=== PATIENT | male | born 1940 | race Caucasian/White ===

== ENCOUNTER 2024-02-06 14:56 | Emergency (ER) | payer OTHER ==
[2024-02-06 16:11] LABS: SARS-CoV-2 Antigen CONTROL BLUE LINE VIS/BG OK
[2024-02-06 16:12] LABS: SARS-CoV-2 Antigen Rapid Res Negative (Negative)
--- NOTE | 2024-02-06 16:38 | RAD REPORT ---
EXAM DESCRIPTION: Pa Single View02/06/2024 3:33 pm CLINICAL HISTORY: COUGH COMPARISON: No comparisons TECHNIQUE: Portable AP view of the chest. FINDINGS: Right chest wall Port-A-Cath in place. The lungs are clear. No pneumothorax or effusion. The cardiomediastinal contours are unremarkable. IMPRESSION: No acute cardiopulmonary process.
--- NOTE | 2024-02-06 16:40 | ER ---
Nurse's Notes [facility] Name: Mario Bosch Age: 83 yrs Sex: Male : 1940 Arrival Date: 02/06/2024 Time: 14:56 Bed 16 Private MD: Diagnosis: Person with feared health complaint in whom no diagnosis is made Presentation: 02/05 15:01 Chief complaint: EMS states: called to [facility] for patient with low ko1 blood pressure and low O2, When they arrived patient was 100% on NC 2l , blood pressure was 134/78. Coronavirus screen: At this time, the client does not indicate any symptoms associated with coronavirus-19. Ebola Screen: No symptoms or risks identified at this time. Initial Sepsis Screen: Does the patient meet any 2 criteria? No. Patient's initial sepsis screen is negative. Does the patient have a suspected source of infection? No. Patient's initial sepsis screen is negative. Risk Assessment: Do you want to hurt yourself or someone else? Patient reports no desire to harm self or others. Onset of symptoms was February 06, 2024. 15:01 Method Of Arrival: EMS: [facility] ko1 15:01 Acuity: NEGAR 3 ko1 Triage Assessment: 15:04 General: Appears in no apparent distress. Behavior is calm, cooperative, appropriate ko1 for age. Pain: Denies pain. EENT: No deficits noted. Neuro: Reports weakness in right side. Cardiovascular: Rhythm is atrial fibrillation. Respiratory: Reports cough that is non-productive. GI: No deficits noted. : No deficits noted. Derm: No deficits noted. Musculoskeletal: No deficits noted. Historical: - Allergies: 15:05 PENICILLINS; sb4 - Home Meds: 15:04 Unable to obtain [Active]; ko1 - PMHx: 15:04 Anemia; Cerebrovascular accident; Coronary atherosclerosis; Atrial fibrillation; ko1 Hypertensive disorder; Hypothyroidism; Dementia; Congestive heart failure; - PSHx: 15:04 Unable to Obtain; ko1 - Immunization history:: Adult Immunizations unknown. - Infectious Disease History:: Denies. - Social history:: Smoking status: unknown. Screenin:30 [facility] ED Fall Risk Assessment (Adult) History of falling in the last 3 months, ko1 including since admission Yes- single mechanical fall (1 pt) Confusion or Disorientation No (0 pts) Intoxicated or Sedated No (0 pts) Impaired Gait Yes (1 pt) Mobility Assist Device Used Yes (1 pt) Altered Elimination Yes (1 pt) Score/Fall Risk Level 3 or more points = High Risk Oriented to surroundings, Maintained a safe environment, Educated pt \T\ family on fall prevention, incl call for assistance when getting out of bed, Assessed \T\ reinforced patient's understanding of fall precautions, Provided non-skid footwear, Hourly rounding (assess needs \T\ fall precautionary measures) done, Used ambulatory aids as needed (educated on \T\ assisted with), Used gait belt as appropriate Implemented a Fall Risk Plan of Care, Apply high fall risk patient identification: yellow non skid footwear/ fall signage, Remained w/in arm's length of patient and in sight while toileting, Offered frequent toileting (1:1 observation), Remained with patient while ambulating, Utilized family, sitter, or virtual radio broadcaster as indicated. Abuse screen: Denies threats or abuse. Denies injuries from another. Nutritional screening: No deficits noted. Tuberculosis screening: No symptoms or risk factors identified. Assessment: 15:05 Reassessment: see triage note. ko1 Vital Signs: 15:01 BP 120 / 52; Pulse 78; Resp 16; Temp 98; Pulse Ox 96% on R/A; ko1 16:06 BP 121 / 57; Pulse 65; Resp 16; Pulse Ox 96% ; dd2 16:30 BP 134 / 62; Pulse 70; Resp 14; Pulse Ox 96% on R/A; ko1 17:12 BP 124 / 62; Pulse 65; Resp 16; Pulse Ox 97% on R/A; ko1 ED Course: 14:58 Patient arrived in ED. sb4 14:59 Marian Comer PA-C is PHCP. sb4 14:59 Wolf George MD is Attending Physician. sb4 15:04 Triage completed. ko1 15:04 Arm band placed on right wrist. Patient placed in an exam room, on a stretcher, on ko1 gambling monitor, on pulse oximetry, Patient notified of wait time. 15:30 Patient has correct armband on for positive identification. Allergy band placed. Bed in ko1 low position. Call light in reach. Side rails up X2. Provided Education on: call light. Client placed on continuous cardiac and pulse oximetry monitoring. NIBP monitoring applied. campus monitor on. Door closed. Noise minimized. Lights dimmed. Warm blanket given. Pillow given. 15:30 No provider procedures requiring assistance completed. Patient did not have IV access ko1 during this emergency room visit. 15:34 Chest Single View In Process Unspecified. EDMS 15:36 Flu Sent. dd2 15:36 SARS RAPID Sent. dd2 16:05 PRISCA CID, RN is Primary Nurse. dd2 17:16 Awaiting transportation. ko1 17:16 Report given to Coco at [facility]. ko1 Administered Medications: No medications were administered Medication: 16:30 VIS not applicable for this client. ko1 Outcome: 16:40 Discharge ordered by . sb4 17:59 Discharged to [facility]. Report called to Coco ko1 17:59 Condition: stable 17:59 Instructed on discharge instructions, follow up and referral plans. 17:59 Patient left the ED. ko1 Signatures: Dispatcher [employer] EDMS Elina Goldstein, RN RN ko1 Marian Comer, PA-C PA-C sb4 PRISCA CID, RN RN dd2 Corrections: (The following items were deleted from the chart) 15:13 15:04 Allergies: PENICILLINS; ko1 sb4
--- NOTE | 2024-02-06 16:40 | EDPHYS ---
Physician Documentation [facility] Name: Mario Bosch Age: 83 yrs Sex: Male : 1940 Arrival Date: 02/06/2024 Time: 14:56 Bed 16 Private MD: ED Physician Wolf George HPI: 02/05 15:04 This 83 yrs old Unknown Male presents to ER via EMS with complaints of Blood Pressure sb4 Problem. 15:05 rehab called EMS for patient having low O2 saturation and low blood pressure, although sb4 did not say what the readings were. EMS arrived and recorded normal vital signs. patient has no complaints at this time. he does endorse a mild cough but denies any chest pain or shortness of breath. Historical: - Allergies: 15:05 PENICILLINS; sb4 - Home Meds: 15:04 Unable to obtain [Active]; ko1 - PMHx: 15:04 Anemia; Cerebrovascular accident; Coronary atherosclerosis; Atrial fibrillation; ko1 Hypertensive disorder; Hypothyroidism; Dementia; Congestive heart failure; - PSHx: 15:04 Unable to Obtain; ko1 - Immunization history:: Adult Immunizations unknown. - Infectious Disease History:: Denies. - Social history:: Smoking status: unknown. ROS: 15:05 Constitutional: Negative for fever, chills, and weight loss, sb4 15:05 Respiratory: Positive for cough, with no reported sputum, Exam: 15:12 Constitutional: This is a well developed, well nourished patient who is awake, alert, sb4 and in no acute distress. Head/Face: Normocephalic, atraumatic. Eyes: Extra-ocular motions intact. Periorbital areas with no swelling, redness, or edema. ENT: Mucous membranes moist. Cardiovascular: Regular rate and rhythm with a normal S1 and S2. Respiratory: Lungs have equal breath sounds bilaterally, clear to auscultation and percussion. No rales, rhonchi or wheezes noted. No increased work of breathing, no retractions or nasal flaring. Abdomen/GI: Soft, non-tender, no distension. Skin: Warm, dry with normal turgor. Normal color with no rashes, no lesions, and no evidence of cellulitis. MS/ Extremity: Pulses equal, no cyanosis. Neurovascular intact. Full, normal range of motion. Vital Signs: 15:01 BP 120 / 52; Pulse 78; Resp 16; Temp 98; Pulse Ox 96% on R/A; ko1 16:06 BP 121 / 57; Pulse 65; Resp 16; Pulse Ox 96% ; dd2 16:30 BP 134 / 62; Pulse 70; Resp 14; Pulse Ox 96% on R/A; ko1 17:12 BP 124 / 62; Pulse 65; Resp 16; Pulse Ox 97% on R/A; ko1 MDM: 14:59 Patient medically screened. sb4 16:39 Data reviewed: vital signs, nurses notes, lab test result(s), radiologic studies, and sb4 as a result, I will discharge patient. Counseling: I had a detailed discussion with the patient and/or guardian regarding the historical points, exam findings, and any diagnostic results supporting the discharge/admit diagnosis, lab results, radiology results, to return to the emergency department if symptoms worsen or persist or if there are any questions or concerns that arise at home. 02/05 15:03 Order name: SARS RAPID; Complete Time: 16:19 sb4 02/05 15:03 Order name: Flu; Complete Time: 16:19 sb4 02/05 15:34 Order name: Chest Single View; Complete Time: 16:39 EDMS Administered Medications: No medications were administered Disposition: 18:09 Co-signature as Attending Physician, Wolf George MD I reviewed the patient's care rn provided by the Advanced Practice Provider and agree with the diagnosis and treatment plan. Disposition Summary: 02/06/24 16:40 Discharge Ordered Notes: Location: Home sb4 Problem: new sb4 Symptoms: are unchanged sb4 Condition: Stable sb4 Diagnosis - Person with feared health complaint in whom no diagnosis is made sb4 Followup: sb4 - With: Emergency Department - When: As needed - Reason: Trouble breathing, Worsening of condition Discharge Instructions: - Discharge Summary Sheet sb4 - Cough, Adult, [id number] sb4 Forms: - SBAR form bd - Patient Portal Instructions sb4 - Leadership Thank You Letter sb4 Signatures: Dispatcher [employer] EDMS Wolf George MD MD rn Oliver, Kathy, RN RN Marian Gardiner PA-C PA-C sb4 Corrections: (The following items were deleted from the chart) 15:03 15:03 SARS-COV-2 Antigen Rapid+I.LAB.BRZ ordered. EDMS EDMS 15:03 15:03 Influenza Screen (A \T\ B)+BA.LAB.BRZ ordered. EDMS EDMS 15:13 15:04 Allergies: PENICILLINS; ko1 sb4 15:34 15:03 Chest Pa And Lat (2 Views)+RAD.RAD.BRZ ordered. EDMS EDMS
[2024-02-06 18:55] VITALS: TEMP 98
[2024-02-06 19:00] VITALS: BP 124/62; O2SAT 97
== END 2024-02-06 17:59 | disposition home or self-care (01) ==
LOC: ER 14:56
DX: Z71.1 Person with feared health complaint in whom no diagnosis is made (principal); R05.9 Cough, unspecified; Z11.52 Encounter for screening for COVID-19
CPT/HCPCS: 36415; 71045; 87804; 87811

== ENCOUNTER 2024-04-27 19:08 | Emergency (ER) | payer OTHER ==
[2024-04-27 20:11] LABS: Absolute Eosinophils 0.1 K/uL (0-0.5); Absolute Lymphocytes (CBC) 1.6 K/uL (0.7-4.9); Absolute Monocytes 0.9 K/uL (0.1-1.3); Absolute Neutrophil 3.8 K/uL (1.8-8.0); Basophils % 0.6 % (0-1.3); Hematocrit 41.9 % (39.6-49.0); Hemoglobin 13.7 g/dL (13.6-17.9); Lymphocytes % 24.3 % (15.3-44.8); MCH 32.2 pg (27.0-35.0); MCHC 32.7 g/dL (32.0-36.0); MCV 98.3 fL (80-100); Monocytes % 14.4 % (3.3-12.3); Neutrophils % 58.7 % (41.7-73.7); Nucleated Red Blood Cells % 0.1 % (0-0); Platelets 171 thou/uL (152-406); RBC Red Blood Cell Count 4.26 M/uL (4.33-5.43)
[2024-04-27 20:24] LABS: Anion Gap 7.1 mEq/L (5.0-15.0); Troponin High Sensitivity 11.8 pg/mL (<58.9)
--- NOTE | 2024-04-27 20:24 | RAD REPORT ---
EXAMINATION: ONE VIEW CHEST XR CLINICAL INDICATION: Male, 83 years old.CHEST PAIN TECHNIQUE: 1 View, AP supine, X-ray of the chest was performed. [id number]. COMPARISON: 02/06/2024 FINDINGS: Lungs and pleura: Clear lungs. No effusion. Heart and mediastinum: Normal heart size. Unremarkable mediastinal contours. Osseous structures: No acute abnormality. Tubes/lines: Right IJ approach Port-A-Cath with tip overlying the distal SVC. Other: None. IMPRESSION: No acute intrathoracic abnormality.
[2024-04-27 20:25] LABS: Potassium 4.1 mEq/L (3.5-5.1)
--- NOTE | 2024-04-27 20:32 | ER ---
Nurse's Notes [facility] Name: Mario Bosch Age: 83 yrs Sex: Male : 1940 Arrival Date: 04/27/2024 Time: 19:08 Bed 2 Private MD: Diagnosis: Shortness of breath;Fluid Retention Presentation: 04/27 19:08 Chief complaint: EMS states: WERE CALLED OUT TO [facility] BY STAFF BECAUSE THEY jj7 STATES PT WAS HAVING SOB AND CP. PT STATES HE WAS HAVING SOB/CP EARLIER BUT SYMPTOMS HAVE RESOLVED. NO PAIN OR DISTRESS AT THIS TIME. Coronavirus screen: At this time, the client does not indicate any symptoms associated with coronavirus-19. Ebola Screen: No symptoms or risks identified at this time. Initial Sepsis Screen: Does the patient meet any 2 criteria? No. Patient's initial sepsis screen is negative. Does the patient have a suspected source of infection? No. Patient's initial sepsis screen is negative. Risk Assessment: Do you want to hurt yourself or someone else? Patient reports no desire to harm self or others. Onset of symptoms was April 27, 2024. Transition of care: patient was received from another setting of care (long-term care facility), [facility]. 19:08 Method Of Arrival: EMS: [facility] jj7 19:08 Acuity: NEGAR 3 jj7 Triage Assessment: 19:08 General: Appears in no apparent distress. comfortable, Behavior is calm, cooperative, jj7 appropriate for age. Pain: Denies pain. Cardiovascular: No deficits noted. Rhythm is atrial fibrillation. Historical: - Allergies: 19:43 PENICILLINS; jj7 - PMHx: 19:43 Anemia; Atrial fibrillation; Cerebrovascular accident; Congestive heart failure; jj7 coronary atherosclerosis; Dementia; Hypertensive disorder; Hypothyroidism; - Immunization history:: Pneumococcal vaccine is up to date, Flu vaccine is up to date. - Infectious Disease History:: Denies. - Social history:: Smoking status: unknown Patient/guardian denies using alcohol, street drugs, IV drugs. Screenin:08 Abuse screen: Denies threats or abuse. Nutritional screening: No deficits noted. jj7 Tuberculosis screening: No symptoms or risk factors identified. 19:08 [facility] ED Fall Risk Assessment (Adult) History of falling in the last 3 months, jj7 including since admission No falls in past 3 months (0 pts) Confusion or Disorientation Yes (5 pts) Intoxicated or Sedated No (0 pts) Impaired Gait Yes (1 pt) Mobility Assist Device Used No (0 pt) Altered Elimination Yes (1 pt) Score/Fall Risk Level 3 or more points = High Risk Oriented to surroundings, Maintained a safe environment, Educated pt \T\ family on fall prevention, incl call for assistance when getting out of bed, Assessed \T\ reinforced patient's understanding of fall precautions, Provided non-skid footwear. Assessment: 19:08 Pain: Denies pain. Pain does not radiate. Pain began RESOLVED. [facility] 21:02 Reassessment: [place] STAFF STATES [facility] WILL BE HERE TO DISHWASHER PREPARER THE PT WITHIN 1 j7 HOUR. PT IS DISCHARGED. 21:45 Reassessment: PT TRANSPORTED BACK TO [facility] BY [facility]. [facility] Vital Signs: 19:08 BP 127 / 59; Pulse 83; Resp 20; Temp 98.4; Pulse Ox 97% on R/A; Weight 90.72 kg; Height j 5 ft. 9 in. ; Pain 0/10; 20:00 BP 122 / 54; Pulse 82; Resp 17; Pulse Ox 98% ; jj7 21:03 BP 130 / 54; Pulse 79; Resp 17; Pulse Ox 99% ; jj7 21:41 BP 135 / 58; Pulse 78; Resp 17; Temp 97.6; Pulse Ox 99% ; Pain 0/10; jj7 19:08 Body Mass Index 29.53 (90.72 kg, 175.26 cm) j7 19:08 Pain Scale: Adult jj7 21:41 Pain Scale: Adult jj7 ED Course: 19:08 Arm band placed on right wrist. Patient placed in an exam room, on a stretcher, on 7 drafter commercial, on pulse oximetry. EKG completed in triage. Results shown to . 19:08 Patient has correct armband on for positive identification. Bed in low position. Call j7 light in reach. Side rails up X2. Adult w/ patient. Provided Education on: USE OF CALL CÁRDENSA. Client placed on continuous cardiac and pulse oximetry monitoring. NIBP monitoring applied. equine dentist on. Pulse ox on. 19:08 Warm blanket given. jj7 19:13 Patient arrived in ED. rv1 19:24 Aravind Hammond MD is Attending Physician. ec2 19:39 Madiha Rogers RN is Primary Nurse. jj7 19:43 Triage completed. jj7 19:50 Missed attempt(s): 20 gauge in right forearm. Bleeding controlled, band aid applied, sa1 catheter tip intact. 19:56 Inserted saline lock: 20 gauge in left wrist, using aseptic technique. Blood collected. jj7 Flushed with 10 mL NS. 19:57 Basic Metabolic Panel Sent. jj7 19:57 CBC with Diff Sent. jj7 19:57 Troponin HS Sent. jj7 20:16 CXR XRAY In Process Unspecified. EDMS 21:44 No provider procedures requiring assistance completed. IV discontinued, intact, jj7 bleeding controlled, No redness/swelling at site. Pressure dressing applied. Patient maintains SpO2 saturation greater than 95% on room air. Administered Medications: 21:35 Drug: Furosemide IVP 40 mg IVP once; give over 2 minutes Route: IVP; Site: left wrist; jj7 21:41 Follow up: Response: No adverse reaction jj7 Medication: 19:08 VIS not applicable for this client. jj7 Outcome: 20:31 Discharge ordered by . ec2 21:44 Discharged to correction. Report called to [facility] jj7 21:44 Condition: good 21:44 Discharge instructions given to family, EMS, Instructed on discharge instructions, Demonstrated understanding of instructions, 21:45 Patient left the ED. jj7 Signatures: Dispatcher [employer] Madiha George RN RN jj7 Jacquelyn Hobson rv1 Aravind Hammond MD MD ec2 [facility]
--- NOTE | 2024-04-27 20:32 | EDPHYS ---
Physician Documentation [facility] Name: Mario Bosch Age: 83 yrs Sex: Male : 1940 Arrival Date: 04/27/2024 Time: 19:08 Bed 2 Private MD: ED Physician Aravind Hammond HPI: 04/27 20:15 This 83 yrs old Male presents to ER via EMS with complaints of Chest Pain, ec2 Shortness Of Breath. 20:15 Patient arrives today for chest tightness and shortness of breath. States that symptoms ec2 for earlier this morning however have since resolved. Does have a history of heart failure, has lower leg swelling. Patient reports otherwise no active complaints at this time.. Historical: - Allergies: 19:43 PENICILLINS; jj7 - PMHx: 19:43 Anemia; Atrial fibrillation; Cerebrovascular accident; Congestive heart failure; jj7 coronary atherosclerosis; Dementia; Hypertensive disorder; Hypothyroidism; - Immunization history:: Pneumococcal vaccine is up to date, Flu vaccine is up to date. - Infectious Disease History:: Denies. - Social history:: Smoking status: unknown Patient/guardian denies using alcohol, street drugs, IV drugs. ROS: 20:15 Constitutional: as per hpi ec2 Exam: 20:15 Constitutional: GEN: NAD Head: atraumatic Eyes: EOMI Ears: External ears are ec2 normal. CV: regular rate, bilateral lower extremity edema identified. LUNGS: no respiratory distress, no wheezes or rales or rhonchi ABD: non-distended SKIN: no evidence of rashes MSK: no evidence of trauma Vital Signs: 19:08 BP 127 / 59; Pulse 83; Resp 20; Temp 98.4; Pulse Ox 97% on R/A; Weight 90.72 kg; Height jj7 5 ft. 9 in. ; Pain 0/10; 20:00 BP 122 / 54; Pulse 82; Resp 17; Pulse Ox 98% ; jj7 21:03 BP 130 / 54; Pulse 79; Resp 17; Pulse Ox 99% ; jj7 21:41 BP 135 / 58; Pulse 78; Resp 17; Temp 97.6; Pulse Ox 99% ; Pain 0/10; jj7 19:08 Body Mass Index 29.53 (90.72 kg, 175.26 cm) jj7 19:08 Pain Scale: Adult jj7 21:41 Pain Scale: Adult jj7 MDM: 19:24 Medical Screening Exam initiated ec2 19:25 ED course: EKG independently reviewed and interpreted by me, shows atrial fibrillation, ec2 rate of 79, no acute ST segment ovation's, intervals are nonactionable.. 20:15 Data reviewed: vital signs. ED course: Patient arrives today for chest tightness and ec2 shortness of breath. Examination remarkable for well-appearing nontoxic dividual's otherwise in no acute distress. EKG as above. Will obtain lab work as well as chest x-ray. Differential includes volume overload. Additionally considered other process such as pneumonia and viral infection.. 20:29 ED course: Metabolic profile is nonactionable. CBC reassuring. Chest x-ray shows no ec2 acute thoracic process. Troponin within normal ranges.. 20:30 ED course: Clinically patient appears volume overloaded with bilateral lower extremity ec2 edema. Patient without any significant fluid retention on the lungs on chest x-ray. Will give the patient a dose of Lasix and discharged home, patient is not hypoxic or tachypneic or working hard to breathe.. 04/27 19:25 Order name: Basic Metabolic Panel; Complete Time: 20:29 ec2 04/27 19:25 Order name: CBC with Diff; Complete Time: 20:29 ec2 04/27 19:25 Order name: Troponin HS; Complete Time: 20:29 ec2 04/27 19:25 Order name: CXR XRAY; Complete Time: 20:29 ec2 04/27 19:25 Order name: EKG; Complete Time: 19:25 ec2 04/27 19:25 Order name: EKG - Nurse/Tech; Complete Time: 19:48 ec2 04/27 19:25 Order name: Cardiac monitoring; Complete Time: 19:48 ec2 04/27 19:25 Order name: IV Saline Lock; Complete Time: 19:57 ec2 04/27 19:25 Order name: Labs collected and sent; Complete Time: 19:57 ec2 04/27 19:25 Order name: O2 Per Protocol; Complete Time: 19:48 ec2 04/27 19:25 Order name: O2 Sat Monitoring; Complete Time: 19:48 ec2 Administered Medications: 21:35 Drug: Furosemide IVP 40 mg IVP once; give over 2 minutes Route: IVP; Site: left wrist; jj7 21:41 Follow up: Response: No adverse reaction jj7 Disposition Summary: 04/27/24 20:31 Discharge Ordered Notes: Location: Home ec2 Condition: Stable ec2 Diagnosis - Shortness of breath ec2 - Fluid Retention ec2 Followup: ec2 - With: Private Physician - When: - Reason: Re-evaluation by your physician Discharge Instructions: - Discharge Summary Sheet ec2 - Shortness of Breath, Adult, [id number] ec2 - Heart Failure, Self-Care, [id number] ec2 Forms: - Medication Reconciliation Form ec2 - Antibiotic Education ec2 - Prescription Opioid Use ec2 - Patient Portal Instructions ec2 - Leadership Thank You Letter ec2 Signatures: Dispatcher [employer] Madiha George RN RN jj7 Aravind Hammond MD MD ec2
[2024-04-27] MEDS ORDERED: FUROSEMIDE 40 MG/4 ML VIAL ONE (21:35)
[2024-04-27 22:10] VITALS: O2SAT 99
[2024-04-27 22:12] VITALS: BP 135/58; TEMP 97.6
--- NOTE | 2024-04-28 12:40 | EKG ---
Test Date: 2024-04-27 Test Time: 19:21:20 Lens Grinder Apprentice: MEASUREMENT RESULTS: Intervals: Rate: 79 [place]: QRSD: 86 QT: 400 QTc: 458 [place]: P: [place]: QRS: 75 T: 79 INTERPRETIVE STATEMENTS: Atrial fibrillation Abnormal ECG No previous ECG available for comparison Electronically Signed On 04-28-24 12:38:40 PHYSICIAN OPHTHALMOLOGIST by Rene Castillo
== END 2024-04-27 21:45 | disposition home or self-care (01) ==
LOC: ER 19:08
DX: R06.02 Shortness of breath (principal); R60.9 Edema, unspecified; R07.89 Other chest pain; I10 Essential (primary) hypertension; I50.9 Heart failure, unspecified; I48.91 Unspecified atrial fibrillation
CPT/HCPCS: 93005; 85025; 80048; 36415; 84484; 71045; 96374; 99285; J1940

== ENCOUNTER 2024-06-28 21:53 | Inpatient (IN) | payer OTHER ==
[2024-06-28 23:22] LABS: Absolute Basophils 0.1 K/uL (0-0.5); Absolute Eosinophils 0.1 K/uL (0-0.5); Absolute Lymphocytes (CBC) 2.2 K/uL (0.7-4.9); Absolute Monocytes 1.2 K/uL (0.1-1.3); Absolute Neutrophil 21.3 K/uL (1.8-8.0); Basophils % 0.5 % (0-1.3); Eosinophils % 0.2 % (0-4.4); Hematocrit 43.8 % (39.6-49.0); Hemoglobin 13.8 g/dL (13.6-17.9); Lymphocytes % 8.7 % (15.3-44.8); MCH 29.6 pg (27.0-35.0); MCHC 31.5 g/dL (32.0-36.0); MCV 94.1 fL (80-100); MPV 9.6 fL (7.6-11.3); Neutrophils % 85.6 % (41.7-73.7); Nucleated Red Blood Cells % 0.1 % (0-0); Platelets 302 thou/uL (152-406); RBC Red Blood Cell Count 4.66 M/uL (4.33-5.43); Red Cell Distribution Width 13.9 % (12.1-15.2)
[2024-06-28] MEDS ORDERED: dilTIAZem HCL 25 MG/5 ML VIAL IV ONE (23:26)
[2024-06-28 23:35] LABS: PT Prothrombin Time 17.2 SECONDS (9.4-12.5); PTT, Activated Partial Thromb 20.1 SECONDS (24.3-36.9); Protime INR 1.56
[2024-06-28 23:43] LABS: SARS-CoV-2 Antigen CONTROL BLUE LINE VIS/BG OK; SARS-CoV-2 Antigen Rapid Res Negative (Negative)
--- NOTE | 2024-06-28 23:59 | RAD REPORT ---
PROCEDURE: XR Chest, 1 View CLINICAL INDICATION: The patient is 83 years old and is Male; Dyspnea. TECHNIQUE: Frontal view of the chest. COMPARISON: None. FINDINGS: LUNGS: Chronic appearing bilateral interstitial lung markings with no discrete focal consolidation. PLEURAL SPACE: No appreciable pleural effusion or pneumothorax. MEDIASTINUM: Unremarkable cardiomediastinal contour. BONES/JOINTS: No acute osseous abnormality. VASCULATURE: Calcified atherosclerosis of the thoracic aorta. TUBES, LINES AND DEVICES: Right IJ approach port catheter with tip terminating at the superior cavo atrial junction. IMPRESSION: Chronic appearing interstitial lung markings with no acute chest findings. Electronically signed by: Víctor Pike MD 06/28/2024 11:51 PM [facility] Due to temporary technical issues with the [email or web address] reporting system, reports are being jun d by the in-house radiologist without review as a courtesy to ensure prompt reporting the interpreting radiologist is fully responsible for the content of the report. Transcribed Date/Time: 06/28/2024 11:59 PM
[2024-06-29] MEDS ORDERED: NA CHLORIDE 0.9% 250 ML ONE (00:09)
[2024-06-29] MEDS ORDERED: AZITHROMYCIN 500 MG INJ IVPB ONE (00:09)
[2024-06-29] MEDS ORDERED: CEFTRIAXONE 1000 MG/VIAL ONE (00:09)
[2024-06-29] MEDS ORDERED: NA CHLORIDE 0.9% 500 ML ONE (00:10)
[2024-06-29 00:12] LABS: Albumin 2.6 g/dL (3.4-5.0); Albumin/Globulin Ratio 0.5 (1.1-1.8); Anion Gap 13.7 mEq/L (5.0-15.0); Bilirubin Total 0.6 mg/dL (0.2-1.0); Globulin 5.1 g/dL (2.3-3.5); Potassium 5.7 mEq/L (3.5-5.1); Protein, Total 7.7 g/dL (6.4-8.2)
--- NOTE | 2024-06-29 00:25 | ER ---
Nurse's Notes [facility] Name: Mario Bosch Age: 83 yrs Sex: Male : 1940 Arrival Date: 06/28/2024 Time: 21:53 Bed 2 Private MD: Diagnosis: Elevated white blood cell count;COPD/ Chronic obstructive pulmonary disease with (acute) exacerbation Presentation: 06/28 22:14 Chief complaint: EMS states: patient [facility] for difficulty al5 breathing. patient stated to the nurse at the facility that he was having trouble breathing. o2 sat was in the 70s on room air. ems arrived and gave him a breathing treatment. patient states it helped him, but is still having audible crackles. Coronavirus screen: congestion, difficulty breathing. Ebola Screen: No symptoms or risks identified at this time. Initial Sepsis Screen: Does the patient meet any 2 criteria? RR > 20 per min. No. Patient's initial sepsis screen is negative. Does the patient have a suspected source of infection? No. Patient's initial sepsis screen is negative. Risk Assessment: Do you want to hurt yourself or someone else? Patient reports no desire to harm self or others. Onset of symptoms was June 28, 2024. 22:14 Method Of Arrival: EMS: [facility] al5 22:14 Acuity: NEGAR 3 al5 Triage Assessment: 22:20 General: Appears in no apparent distress. ill, Behavior is calm, cooperative. Pain: al5 Denies pain. EENT: No signs and/or symptoms were reported regarding the EENT system. Neuro: Level of Consciousness is awake, alert, obeys commands, Oriented to person, place, time, situation. Cardiovascular: Capillary refill < 3 seconds Patient's skin is warm and dry. Pulses are all present. Respiratory: Airway is patent Respiratory effort is even, unlabored, Respiratory pattern is regular, symmetrical, tachypnea Breath sounds with crackles bilaterally. GI: No signs and/or symptoms were reported involving the gastrointestinal system. Abdomen is flat, non-distended, Last BM was June 28, 2024. : No signs and/or symptoms were reported regarding the genitourinary system. Derm: Skin is intact, Skin is pink, warm \T\ dry. normal. Musculoskeletal: generalized muscle weakness in all extremities. Historical: - Allergies: 22:17 PENICILLINS; al5 - PMHx: 22:17 Anemia; Atrial fibrillation; Cerebrovascular accident; Congestive heart failure; al5 coronary atherosclerosis; Dementia; Hypertensive disorder; Hypothyroidism; - PSHx: 22:17 None; al5 - Immunization history:: Adult Immunizations up to date. - Infectious Disease History:: Denies. - Social history:: Smoking status: Patient denies any tobacco usage or history of. Screenin:24 [facility] ED Fall Risk Assessment (Adult) History of falling in the last 3 months, al5 including since admission No falls in past 3 months (0 pts) Confusion or Disorientation No (0 pts) Intoxicated or Sedated No (0 pts) Impaired Gait Yes (1 pt) Mobility Assist Device Used Yes (1 pt) Altered Elimination Yes (1 pt) Score/Fall Risk Level 3 or more points = High Risk Oriented to surroundings, Maintained a safe environment, Provided non-skid footwear, Hourly rounding (assess needs \T\ fall precautionary measures) done, Utilized family, sitter, or virtual marketer as indicated. Abuse screen: Denies threats or abuse. Denies injuries from another. Nutritional screening: No deficits noted. Tuberculosis screening: No symptoms or risk factors identified. Assessment: 22:24 Reassessment: see triage assessment. al5 23:00 Reassessment: Patient appears in no apparent distress at this time. Patient and/or al5 family updated on plan of care and expected duration. Pain level reassessed. Patient is alert, oriented x 3, equal unlabored respirations, skin warm/dry/pink. patient taken off bipap at this time and placed on 4 L nasal cannula Patient states symptoms have improved. 06/29 00:43 Reassessment: Patient appears in no apparent distress at this time. No changes from al5 previously documented assessment. Patient and/or family updated on plan of care and expected duration. Pain level reassessed. Patient is alert, oriented x 3, equal unlabored respirations, skin warm/dry/pink. 02:41 Reassessment: Patient appears in no apparent distress at this time. No changes from al5 previously documented assessment. Patient and/or family updated on plan of care and expected duration. Pain level reassessed. Patient is alert, oriented x 3, equal unlabored respirations, skin warm/dry/pink. Vital Signs: 06/28 22:14 BP 128 / 69; Pulse 63; Resp 25; Temp 98.6; Pulse Ox 97% on Non-rebreather mask; Weight al5 79.83 kg; Height 5 ft. 9 in. ; 22:15 BP 137 / 82; Pulse 126; Resp 21; Pulse Ox 100% on BiPAP; al5 22:30 BP 126 / 74; Pulse 127; Resp 21; Pulse Ox 100% on BiPAP; al5 22:45 BP 124 / 81; Pulse 121; Resp 21; Pulse Ox 100% on BiPAP; al5 23:00 BP 127 / 57; Pulse 119; Resp 21; Pulse Ox 100% on NC; FiO2 4 %; al5 23:15 BP 110 / 51; Pulse 129; Resp 23; Pulse Ox 100% on 4 lpm NC; al5 23:20 BP 127 / 57; Pulse 135; ec2 23:30 BP 105 / 56; Pulse 104; Resp 23; Pulse Ox 99% on 4 lpm NC; al5 23:45 BP 86 / 64; Pulse 130; Resp 21; Pulse Ox 99% on 4 lpm NC; al5 23:45 BP 105 / 56; Pulse 109; ec2 23:57 BP 105 / 38; Pulse 101; Resp 22; Pulse Ox 100% on 4 lpm NC; al5 06/29 00:00 BP 100 / 53; Pulse 93; Resp 23; Pulse Ox 100% on 4 lpm NC; al5 00:15 BP 117 / 49; Pulse 90; Resp 24; Pulse Ox 100% on 4 lpm NC; al5 00:30 BP 114 / 53; Pulse 107; Resp 21; Pulse Ox 100% on 4 lpm NC; al5 01:00 BP 105 / 55; Pulse 81; Resp 22; Pulse Ox 100% on 4 lpm NC; al5 01:30 BP 109 / 56; Pulse 82; Resp 22; Pulse Ox 100% on 4 lpm NC; al5 02:00 BP 114 / 54; Pulse 82; Resp 22; Pulse Ox 100% on 4 lpm NC; al5 02:30 BP 113 / 54; Pulse 77; Resp 20; Pulse Ox 100% on 4 lpm NC; al5 06/28 22:14 Body Mass Index 25.99 (79.83 kg, 175.26 cm) [facility] ED Course: 06/28 21:54 Patient arrived in ED. kb 21:54 [facility] Boyd [facility]C [facility]. kb 21:54 Aravind Hammond MD is Attending Physician. kb 22:14 Cris Mcintyre RN is Primary Nurse. al5 22:17 Triage completed. al5 22:23 Arm band placed on right wrist. Patient placed in the treatment room, on a stretcher, al5 on oxygen, on sole leveler machine, on pulse oximetry. 22:24 Patient has correct armband on for positive identification. Placed in gown. Bed in low al5 position. Call light in reach. Side rails up X2. family with patient at bedside. Provided Education on: plan of care. 22:25 No provider procedures requiring assistance completed. al5 22:45 Chest Single View XRAY In Process Unspecified. EDMS 22:47 Inserted saline lock: 22 gauge in right forearm, using aseptic technique. Blood al5 collected. Flushed with 10 mL NS. 06/29 00:25 Mark Butt MD is Hospitalizing Provider. kb 02:40 Patient admitted, IV remains in place. al5 Administered Medications: 06/28 21:56 CANCELLED (Physician Discretion): [id number] mg IVP once; give over 2 minutes kb 23:12 Not Given (Physician Discretion): albuterol2.5 mg Inhalation once al5 23:40 Drug: Diltiazem IVP 15 mg IVP once; Over 2 Minutes Route: IVP; Site: right forearm; al5 06/29 00:23 Follow up: Response: No adverse reaction; No change in condition al5 00:22 Drug: Zithromax IVPB 500 mg IVPB once over 1 hrs; mix in 250 mL NS Route: IVPB; Infused al5 Over: 1 hrs; Site: right forearm; 01:38 Follow up: IV Status: Completed infusion; IV Intake: 250ml vc1 00:22 Drug: NS 0.9% IV 500 ml 500 ml IV at 1 bolus once; to be given as a bolus over 30 al5 minutes Volume: 500 ml; Route: IV; Rate: 1 bolus; Site: right forearm; 01:38 Follow up: IV Status: Completed infusion; IV Intake: 500ml vc1 00:23 Drug: Rocephin IV 1 grams IV at calculated rate once; Given slow IV push per pharmacy al5 instructions Route: IV; Rate: calculated rate; Site: right forearm; 02:43 Follow up: Response: No adverse reaction; IV Status: Completed infusion al5 Medication: 06/28 22:24 VIS not applicable for this client. al5 Intake: 06/29 01:38 IV: 500ml; Total: 500ml. vc1 01:38 IV: 250ml; Total: 750ml. vc1 Outcome: 00:25 Decision to Hospitalize by Provider. kb 02:41 Admitted to Med/surg accompanied by tech, via stretcher, room 408, with oxygen, with al5 chart, Report called to park 02:41 Condition: stable 02:41 Instructed on the need for admit, 02:56 Patient left the ED. al5 Signatures: Dispatcher [employer] EDMartha Connelly, WENCESLAO ADAIRP-Jasmine Ramesh RN RN vc1 Cris Mcintyre RN RN al5 Corrections: (The following items were deleted from the chart) 06/28 22:20 22:17 PSHx: None; al5 al5 06/29 00:22 00:22 NS 0.9% IV 500 ml 500 ml IV at 1 bolus in left forearm al5 al5
--- NOTE | 2024-06-29 00:25 | EDPHYS ---
Physician Documentation [facility] Name: Mario Bosch Age: 83 yrs Sex: Male : 1940 Arrival Date: 06/28/2024 Time: 21:53 Bed 2 Private MD: ED Physician Aravind Hammond HPI: 06/28 23:55 This 83 yrs old Male presents to ER via EMS with complaints of Shortness Of Breath. 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 Denies cough, fever. EMS reports oxygen saturation in the 70s prior to neb treatment, then 91%. No aggravating or alleviating factors. . Historical: - Allergies: 22:17 PENICILLINS; al5 - PMHx: 22:17 Anemia; Atrial fibrillation; Cerebrovascular accident; Congestive heart failure; al5 coronary atherosclerosis; Dementia; Hypertensive disorder; Hypothyroidism; - PSHx: 22:17 None; al5 - Immunization history:: Adult Immunizations up to date. - Infectious Disease History:: Denies. - Social history:: Smoking status: Patient denies any tobacco usage or history of. ROS: 23:32 Constitutional: As per HPI kb Exam: 22:00 Constitutional: This is a well developed, well nourished patient who is awake, alert, kb and in no acute distress. Head/Face: Normocephalic, atraumatic. ENT: Moist Mucous membranes Cardiovascular: Regular rate Abdomen/GI: Soft, non-tender. No distention Skin: Warm, dry with normal turgor. Normal color. MS/ Extremity: Pulses equal, no cyanosis. Neurovascular intact. Full, normal range of motion. Neuro: Awake and alert, GCS 15, oriented to person, place, time, and situation. 22:00 Respiratory: moderate respiratory distress is noted, Respirations: labored breathing, Breath sounds: rhonchi, that are moderate, are scattered, 23:34 Respiratory: the patient does not display signs of respiratory distress, Respirations: kb normal, Breath sounds: are clear throughout, resp improved after coughing up large amount of sputum. , Vital Signs: 22:14 BP 128 / 69; Pulse 63; Resp 25; Temp 98.6; Pulse Ox 97% on Non-rebreather mask; Weight al5 79.83 kg; Height 5 ft. 9 in. ; 22:15 BP 137 / 82; Pulse 126; Resp 21; Pulse Ox 100% on BiPAP; al5 22:30 BP 126 / 74; Pulse 127; Resp 21; Pulse Ox 100% on BiPAP; al5 22:45 BP 124 / 81; Pulse 121; Resp 21; Pulse Ox 100% on BiPAP; al5 23:00 BP 127 / 57; Pulse 119; Resp 21; Pulse Ox 100% on NC; FiO2 4 %; al5 23:15 BP 110 / 51; Pulse 129; Resp 23; Pulse Ox 100% on 4 lpm NC; al5 23:20 BP 127 / 57; Pulse 135; ec2 23:30 BP 105 / 56; Pulse 104; Resp 23; Pulse Ox 99% on 4 lpm NC; al5 23:45 BP 86 / 64; Pulse 130; Resp 21; Pulse Ox 99% on 4 lpm NC; al5 23:45 BP 105 / 56; Pulse 109; ec2 23:57 BP 105 / 38; Pulse 101; Resp 22; Pulse Ox 100% on 4 lpm NC; al5 06/29 00:00 BP 100 / 53; Pulse 93; Resp 23; Pulse Ox 100% on 4 lpm NC; al5 00:15 BP 117 / 49; Pulse 90; Resp 24; Pulse Ox 100% on 4 lpm NC; al5 00:30 BP 114 / 53; Pulse 107; Resp 21; Pulse Ox 100% on 4 lpm NC; al5 01:00 BP 105 / 55; Pulse 81; Resp 22; Pulse Ox 100% on 4 lpm NC; al5 01:30 BP 109 / 56; Pulse 82; Resp 22; Pulse Ox 100% on 4 lpm NC; al5 02:00 BP 114 / 54; Pulse 82; Resp 22; Pulse Ox 100% on 4 lpm NC; al5 02:30 BP 113 / 54; Pulse 77; Resp 20; Pulse Ox 100% on 4 lpm NC; al5 06/28 22:14 Body Mass Index 25.99 (79.83 kg, 175.26 cm) al5 MDM: 06/28 21:54 Medical Screening Exam initiated kb 23:36 Data reviewed: vital signs, nurses notes. kb 23:55 Differential diagnosis: Chronic Obstructive Pulmonary Disease pneumonia, pulmonary kb edema. Consideration of Admission/Observation Patient was admitted/placed on observation. Escalation of care including admission/observation considered. Historians other than the Patient: EMS: [facility]. Care significantly affected by the following chronic conditions: Congestive Heart Failure, Chronic Obstructive Pulmonary Disease. Counseling: I had a detailed discussion with the patient and/or guardian regarding the historical points, exam findings, and any diagnostic results supporting the discharge/admit diagnosis, lab results, radiology results, the need for further work-up and treatment in the hospital. 06/29 00:03 ED course: Pt will be given 500ml of NS instead of 30ml/kg due to concern for fluid kb overload. . 00:24 Management of patient was discussed with the following: Hospitalist: Dr Filomena sheridan accepts pt for admission. ED course: Sepsis reevaluation complete. 06/28 21:55 Order name: Blood Culture Adult (2) kb 06/28 21:55 Order name: CBC with Diff kb 06/28 21:55 Order name: CMP; Complete Time: 00:13 kb 06/28 21:55 Order name: Lactate w/ 2H reflex if indic.; Complete Time: 23:54 kb 06/28 21:55 Order name: Protime (+inr); Complete Time: 23:44 kb 06/28 21:55 Order name: Ptt, Activated; Complete Time: 23:44 kb 06/28 22:46 Order name: BNP; Complete Time: 23:54 ec2 06/28 22:46 Order name: Influenza Screen (a \T\ B); Complete Time: 23:44 ec2 06/28 22:46 Order name: SARS RAPID; Complete Time: 23:44 ec2 06/29 00:01 Order name: Ghost Lactate-NO COLLECT Timer EDSD 06/29 00:49 Order name: CBC with Automated Diff EDMS 06/29 00:49 Order name: CBC with Automated Diff EDMS 06/29 00:49 Order name: Comprehensive Metabolic Panel EDSD 06/29 00:49 Order name: Comprehensive Metabolic Panel EDSD 06/29 01:10 Order name: Manual Differential EDSD 06/29 02:52 Order name: Lactate Sepsis 2 HR Follow-up EDMS 06/28 21:55 Order name: Chest Single View XRAY kb 06/28 21:55 Order name: EKG; Complete Time: 21:55 kb 06/28 21:55 Order name: Cardiac monitoring; Complete Time: 22:27 kb 06/28 21:55 Order name: EKG - Nurse/Tech; Complete Time: 22:27 kb 06/28 21:55 Order name: IV Saline Lock - Large Bore; Complete Time: 23:12 kb 06/28 21:55 Order name: Labs collected and sent; Complete Time: 23:12 kb 06/28 21:55 Order name: O2 Per Protocol; Complete Time: 22:27 kb 06/28 21:55 Order name: O2 Sat Monitoring; Complete Time: 22:27 kb 06/28 21:55 Order name: Vital Signs; Complete Time: 22:27 kb Administered Medications: 06/28 21:56 CANCELLED (Physician Discretion): [id number] mg IVP once; give over 2 minutes kb 23:12 Not Given (Physician Discretion): albuterol2.5 mg Inhalation once al5 23:40 Drug: Diltiazem IVP 15 mg IVP once; Over 2 Minutes Route: IVP; Site: right forearm; al5 06/29 00:23 Follow up: Response: No adverse reaction; No change in condition al5 00:22 Drug: Zithromax IVPB 500 mg IVPB once over 1 hrs; mix in 250 mL NS Route: IVPB; Infused al5 Over: 1 hrs; Site: right forearm; 01:38 Follow up: IV Status: Completed infusion; IV Intake: 250ml vc1 00:22 Drug: NS 0.9% IV 500 ml 500 ml IV at 1 bolus once; to be given as a bolus over 30 al5 minutes Volume: 500 ml; Route: IV; Rate: 1 bolus; Site: right forearm; 01:38 Follow up: IV Status: Completed infusion; IV Intake: 500ml vc1 00:23 Drug: Rocephin IV 1 grams IV at calculated rate once; Given slow IV push per pharmacy al5 instructions Route: IV; Rate: calculated rate; Site: right forearm; 02:43 Follow up: Response: No adverse reaction; IV Status: Completed infusion al5 Disposition: 06/28 23:20 I agree with the assessment and plan of care. ec2 Disposition Summary: 06/29/24 00:25 Hospitalization Ordered Notes: Hospitalization Status: Observation kb Provider: Mark Butt [facility] kb Condition: Stable kb Problem: new kb Symptoms: are unchanged kb Bed/Room Type: Standard Room Assignment: 408(06/29/24 01:40) vc1 Diagnosis - Elevated white blood cell count kb - COPD/ Chronic obstructive pulmonary disease with (acute) exacerbation kb Forms: - Medication Reconciliation Form kb - SBAR form kb - Leadership Thank You Letter kb Addendum: 06/30/2024 23:47 I was immediately available for consultation during this patient's visit. I did not e c2 personally see the patient or discuss the patient with the CLAUDIA. . Signatures: Dispatcher [employer] EDMS Martha Boyd, [employer]-Jasmine Ramesh RN RN vc1 Aravind Hammond MD MD ec2 Cris Mcintyre RN RN al5 Corrections: (The following items were deleted from the chart) 06/28 21:55 21:55 BLOOD CULTURE*+BA.LAB.BRZ ordered. EDMS EDMS 21:55 21:55 CBC+H.LAB.BRZ ordered. EDMS EDMS 21:55 21:55 COMPREHENSIVE METABOLIC PANEL+C.LAB.BRZ ordered. EDMS EDMS 21:55 21:55 LACTATE+C.LAB.BRZ ordered. EDMS EDMS 21:55 21:55 PROTIME (+INR)+COAG.LAB.BRZ ordered. EDMS EDMS 21:55 21:55 PTT, ACTIVATED+COAG.LAB.BRZ ordered. EDMS EDMS 21:55 21:55 BiPap ([employer] Only)+RC.RAD.BRZ ordered. EDMS EDMS 21:56 21:55 Furosemide IVP 20 mg IVP once; give over 2 minutes ordered. kb kb 22:20 22:17 PSHx: None; al5 al5 23:33 23:32 Constitutional: This is a well developed, well nourished patient who is awake, kb alert, and in no acute distress. Head/Face: Normocephalic, atraumatic. ENT: Moist Mucous membranes Cardiovascular: Regular rate Abdomen/GI: Soft, non-tender. No distention Skin: Warm, dry with normal turgor. Normal color. MS/ Extremity: Pulses equal, no cyanosis. Neurovascular intact. Full, normal range of motion. Neuro: Awake and alert, GCS 15, oriented to person, place, time, and situation. kb 23:33 23:32 Respiratory: moderate respiratory distress is noted, Respirations: labored kb breathing, Breath sounds: rhonchi, that are moderate, are scattered, kb 23:41 21:55 Accucheck ordered. kb al5 06/29 01:40 00:25 kb vc1
[2024-06-29] MEDS: ARFORMOTEROL TARTRATE 15 MCG/2 ML VIAL.NEB NEB SCH (00:43)
--- NOTE | 2024-06-29 00:49 | P.HP ---
Certification for Inpatient With expected LOS: >2 Midnights Practitioner: I am a practitioner with admitting privileges, knowledge of patient current condition, hospital course, and medical plan of care. Services: Services provided to patient in accordance with Admission requirements found in Title 42 Section 412.3 of the Code of Federal Regulations Patient History Date of Service: 06/29/24 Reason for admission: COPD exacerbation History of Present Illness: Patient is 83 years of age with a history of COPD has been sick for the past day complaining of cough congestion worsening shortness of breath patient is an ex-smoker quit in 2022 son at the bedside recently wheelchair-bound O2 and nebulizers at home lives in a skilled nursing and was congested - Past Medical/Surgical History -: Atrial fibrillation -: History of stroke affecting the right side -: Congestive heart failure -: Colon cancer -: Renal cancer -: Dementia -: Hypothyroidism -: Right-sided nephrectomy -: Partial colectomy - Social History Smoking Status: Former smoker Review of Systems 10-point ROS is otherwise unremarkable Respiratory: Cough, Shortness of Breath Physical Examination - Vital Signs Blood Pressure: 117/49 Pulse: 102 Respirations: 26 Pulse Ox (%): 100 - Physical Exam General: Alert, Oriented x3, Moderate distress Respiratory: Expiratory wheezes, Rhonchi/gurgles Cardiovascular: No edema, Regular rate/rhythm Gastrointestinal: Normal bowel sounds, Soft and benign Musculoskeletal: No clubbing, No swelling Integumentary: No rashes, No breakdown Neurological: Normal speech - Studies Laboratory Data (last 24 hrs) 06/28/24 06/28/24 06/28/24 22:53 22:53 22:53 WBC 24.90 H Hgb 13.8 Hct 43.8 Plt Count 302 PT 17.2 H INR 1.56 APTT 20.1 L Sodium 138 Potassium 5.7 H BUN 9 Creatinine 0.67 L Glucose 130 H Total Bilirubin 0.6 AST 73 H ALT 18 Alkaline Phosphatase 63 Microbiology Data (last 24 hrs): 06/28/24 22:56 Nasopharnyx Influenza Type A Antigen Screen - Final 06/28/24 22:56 Nasopharnyx Influenza Type B Antigen Screen - Final Assessment and Plan - Problems (Diagnosis) (1) COPD exacerbation Current Visit: Yes Status: Acute Plan: Patient is 83 years of age admitted with cough congestion worsening over the past day he is a former smoker quit in 2022 and is wheelchair-bound has had a stroke pulm cancers and at the cancer center his nebulizers and oxygen at home per his son patient is DNR we will plan to admit treat with bronchodilators and steroids labs show elevated white count mild hyperkalemia acid is elevated BNP is also elevated chest x-ray is over clear to also start him on some IV fluids the INR is also elevated patient is on spironolactone levothyroxine and and Eliquis at home - Advance Directives Does patient have a Living Will: Yes Does patient have a Durable POA for Healthcare: Yes
[2024-06-29] MEDS: IPRATROPIUM BROM 0.5MG/2.5ML NEB SCH (01:00)
[2024-06-29 01:09] LABS: Band Neutrophils 3 % (0-1); Differential Total Cells Count 100; Lymphocytes 8 % (15-42); Segmented Neutrophils 86 % (40-80)
[2024-06-29 01:10] LABS: Blood Morphology Comment NOT SEEN (NOT SEEN); Monocytes 3 % (0-10); Platelet Estimate ADEQ
[2024-06-29] MEDS: METHYLPREDNISOLONE 40 MG INJ IV SCH (03:16)
[2024-06-29] MEDS: NACHLORIDE 0.45% 1,000 ML IV SCH (03:16)
[2024-06-29] MEDS: ACETAMINOPHEN 500 MG TAB PO PRN (03:47)
[2024-06-29] MEDS: CEFTRIAXONE 1,000 MG in NA CHLORIDE 0.9% 50 ML IVPB SCH (08:34)
[2024-06-29] MEDS ORDERED: SENOSIDES 8.6 MG TAB PO PRN (09:02)
[2024-06-29] MEDS: HOME MED 1 EA UNK (Esomeprazole Magnesium [Esomeprazole Magnesium] 40 MG Capsule.Dr) PO SCH (09:03)
[2024-06-29] MEDS: FINASTERIDE 5 MG TAB PO SCH (09:47)
[2024-06-29] MEDS: APIXABAN 5 MG TABLET PO SCH (09:47)
[2024-06-29] MEDS: FENOFIBRATE 160 MG TAB PO SCH (09:47)
--- NOTE | 2024-06-29 11:37 | P.PN ---
Date of Service: 06/29/24 Subjective Patient seen and examined. Lactic acid decreased On Room air, eating a sandwich Chest xray reviewed COPD exacerbation, flu/COVID negative lactic acidosis/leucocytosis Plan: Continue empiric IV antibiotics Continue Duonebs and steroids Follow blood cultures
[2024-06-29 12:28] LABS: Specific Gravity 1.027 (1.005-1.030); Sqamous Epithelial <5 /HPF (None Seen); Transitional Epithelial <5 /HPF (None Seen); Urine Bacteria >50 /HPF (<20); Urine Bilirubin NEGATIVE (Negative); Urine Blood 1+ (Negative); Urine Clarity Extremely Turbid (Clear); Urine Color Yellow (Yellow); Urine Culture Reflex Order REFLEXED; Urine Glucose 2+ (Negative); Urine Ketones NEGATIVE (Negative); Urine Microscopic Reflex YN ORDER UMIC; Urine Mucus Slight /HPF (None Seen); Urine Nitrite 1+ (Negative); Urine Protein TRACE (Negative); Urine Urobilinogen Normal (Normal); Urine WBC >50 /HPF (<5); Urine Yeast (Budding) Trace /HPF (None Seen); Urine pH 5.5 (5.0-7.0)
[2024-06-29] MEDS: SOD POLYSTYREN SUL 15 GM/60 ML UCUP PO ONE (12:28)
[2024-06-29 12:38] LABS: Absolute Basophils 0.1 K/uL (0-0.5); Absolute Lymphocytes (CBC) 1.4 K/uL (0.7-4.9); Absolute Monocytes 0.4 K/uL (0.1-1.3); Absolute Neutrophil 22.3 K/uL (1.8-8.0); Basophils % 0.4 % (0-1.3); Hematocrit 35.6 % (39.6-49.0); Hemoglobin 11.7 g/dL (13.6-17.9); MCH 30.5 pg (27.0-35.0); MCHC 32.9 g/dL (32.0-36.0); MCV 92.6 fL (80-100); Monocytes % 1.5 % (3.3-12.3); Neutrophils % 92.1 % (41.7-73.7); Platelets 251 thou/uL (152-406); RBC Red Blood Cell Count 3.85 M/uL (4.33-5.43); Red Cell Distribution Width 13.7 % (12.1-15.2)
[2024-06-29] MEDS: ATORVASTATIN 40 MG TAB PO SCH (20:55)
[2024-06-30] MEDS: LEVOTHYROXINE SOD 0.1 MG TAB PO SCH (05:24)
[2024-06-30 05:46] LABS: Absolute Lymphocytes (CBC) 1.2 K/uL (0.7-4.9); Absolute Monocytes 0.5 K/uL (0.1-1.3); Absolute Neutrophil 16.3 K/uL (1.8-8.0); Basophils % 0.1 % (0-1.3); Hematocrit 35.5 % (39.6-49.0); Hemoglobin 11.4 g/dL (13.6-17.9); Lymphocytes % 6.7 % (15.3-44.8); MCH 30.2 pg (27.0-35.0); MCHC 32.2 g/dL (32.0-36.0); MCV 93.9 fL (80-100); MPV 8.7 fL (7.6-11.3); Monocytes % 2.7 % (3.3-12.3); Neutrophils % 90.5 % (41.7-73.7); Platelets 261 thou/uL (152-406); RBC Red Blood Cell Count 3.79 M/uL (4.33-5.43); Red Cell Distribution Width 13.6 % (12.1-15.2)
[2024-06-30 06:03] LABS: ALT/SGPT < 14 U/L (16-61); AST/SGOT < 10 U/L (15-37); Albumin 2.2 g/dL (3.4-5.0); Albumin/Globulin Ratio 0.6 (1.1-1.8); Alkaline Phosphatase 53 U/L (45-117); Anion Gap 9.4 mEq/L (5.0-15.0); BUN Blood Urea Nitrogen 11 mg/dL (7-18); Bicarbonate 26 mEq/L (21-32); Bilirubin Total 0.4 mg/dL (0.2-1.0); Glomerular Filtration Rate 84 ml/min (=/>90); Glucose Level 209 mg/dL (74-106); Potassium 3.4 mEq/L (3.5-5.1); Protein, Total 6.2 g/dL (6.4-8.2); Sodium Level 142 mEq/L (136-145)
[2024-06-30] MEDS: VITAMIN D 5,000 UNIT CAP PO SCH (10:04)
[2024-06-30] MEDS: MULTIVITAMIN TAB PO SCH (10:05)
[2024-06-30] MEDS: FERROUS SULFATE 325 MG TAB PO SCH (10:05)
[2024-06-30] MEDS: PANTOPRAZOLE 40MG TABLET PO SCH (10:05)
[2024-06-30] MEDS: CETIRIZINE HCL 5 MG TABLET PO SCH (10:05)
[2024-06-30] MEDS: NACHLORIDE 0.45% 1,000 ML IV SCH (10:06)
[2024-06-30] MEDS: CEFEPIME 1 GM in NA CHLORIDE 0.9% 100 ML IV SCH (11:02)
--- NOTE | 2024-06-30 11:26 | P.PN ---
Date of Service: 06/30/24 Subjective Awake and conversing well He has remained on RA this admission WBC slowly downtrending Lactic acid continues to be elevated Changing IV antibiotics to cefepime Following blood culture, urine cultures with mixed rolf ROS 10 point ROS as noted above, otherwise negative Physical Exam General: Alert and Oriented x1, NAD Respiratory: Clear BBS, on RA, nonlabored breathing Cardiovascular: No edema, Regular rate/rhythm, S1 S2 present Gastrointestinal: Normal bowel sounds, Soft and benign on palpation Musculoskeletal: No clubbing, No swelling Integumentary: No rashes, No breakdown Neurological: Normal speech Vitals Reviewed Problem list Acute respiratory distress secondary to COPD exacerbation Lactic acidosis Leukocytosis likely 2/2 steroid use Atrial fibrillation CHF Dementia Assessment and Plan Severe sepsis 2/2 to unknown source Acute respiratory distress secondary to COPD exacerbation Lactic acidosis Leukocytosis likely 2/2 steroid use -Sepsis criteria HR 126/ RR 25, WBC 24.9, LA 3.5 -reported on Home O2, Currently on room air -Steroids and DuoNebs -Follow blood culture-no growth today -Urine culture with mixed rolf -Continue empiric IV antibiotics, stop Rocephin and started cefepime (06/30) -IVF increased to 100ml/hr Atrial fibrillation CHF Dementia -Continue home medication -Continuous telemetry DVT ppx Eliquis DNR LOS 2 days
[2024-06-30] MEDS ORDERED: METHYLPREDNISOLONE 40 MG INJ IV SCH (12:00)
[2024-06-30] MEDS: METHYLPREDNISOLONE 40 MG INJ IV SCH (21:03)
[2024-07-01 06:32] LABS: Absolute Lymphocytes (CBC) 1.3 K/uL (0.7-4.9); Absolute Monocytes 0.5 K/uL (0.1-1.3); Absolute Neutrophil 12.5 K/uL (1.8-8.0); Basophils % 0.2 % (0-1.3); Hematocrit 36.4 % (39.6-49.0); Lymphocytes % 8.9 % (15.3-44.8); MCH 30.5 pg (27.0-35.0); MCV 92.6 fL (80-100); MPV 9.4 fL (7.6-11.3); Monocytes % 3.3 % (3.3-12.3); Neutrophils % 87.6 % (41.7-73.7); Nucleated Red Blood Cells % 0.1 % (0-0); Platelets 244 thou/uL (152-406); RBC Red Blood Cell Count 3.93 M/uL (4.33-5.43); Red Cell Distribution Width 13.9 % (12.1-15.2)
[2024-07-01 06:51] LABS: Anion Gap 10.1 mEq/L (5.0-15.0); Magnesium 1.7 mg/dL (1.6-2.4); Potassium 3.1 mEq/L (3.5-5.1)
[2024-07-01 07:06] LABS: Phosphorus 1.5 mg/dL (2.5-4.9)
--- NOTE | 2024-07-01 07:42 | P.PN ---
Date of Service: 07/01/24 Subjective Reports feeling well afebrile overnight antibiotics changes now with decrease in WBC and LA ROS 10 point ROS as noted above, otherwise negative Physical Exam General: Awake, Alert and Oriented x1, NAD Respiratory: Clear BBS, on RA, nonlabored breathing Cardiovascular: No edema, NSR, S1 S2 present Gastrointestinal: Normal bowel sounds, Soft and benign on palpation Musculoskeletal: No clubbing, No swelling Integumentary: No rashes, No breakdown Neurological: Normal speech Vitals Reviewed Problem list Acute respiratory distress secondary to COPD exacerbation Lactic acidosis Leukocytosis Electrolyte Imbalance Atrial fibrillation CHF Dementia Assessment and Plan Severe sepsis 2/2 to unknown source Acute respiratory distress secondary to COPD exacerbation Lactic acidosis Leukocytosis -Sepsis criteria HR 126/ RR 25, WBC 24.9, LA 3.5 -reported on Home O2, Currently on room air -Steroids and DuoNebs -Blood culture-no growth today -Urine culture with mixed rolf -Continue empiric IV antibiotics, stop Rocephin and started cefepime (06/30) -IVF increased to 100ml/hr Electrolyte Imbalance -K 3.1, Phos 1.5 -Replace and monitor PRN Atrial fibrillation CHF Dementia -Continue home medication -Continuous telemetry DVT ppx Eliquis DNR LOS 2 days
[2024-07-01] MEDS: POTASSIUM PHOS 30 MM in NA CHLORIDE 0.9% 500 ML IV SCH (09:04)
--- NOTE | 2024-07-01 10:50 | EKG ---
Test Date: 2024-06-28 Test Time: 22:09:06 Ship Boss: YANIQUE MEASUREMENT RESULTS: Intervals: Rate: 160 [place]: QRSD: 66 QT: 274 QTc: 447 Magnet: P: [place]: QRS: 80 T: -80 INTERPRETIVE STATEMENTS: Atrial fibrillation with rapid ventricular response ST & T wave abnormality, consider inferior ischemia ST & T wave abnormality, consider anterolateral ischemia Abnormal ECG Compared to ECG 04/27/2024 19:21:20 ST (T wave) deviation now present Possible ischemia now present Electronically Signed On 07-01-24 10:49:37 [employer] by Rene Castillo
[2024-07-01] MEDS: CEFEPIME 2 GM in NA CHLORIDE 0.9% 100 ML IV SCH (21:17)
[2024-07-02 08:19] LABS: Absolute Lymphocytes (CBC) 1.6 K/uL (0.7-4.9); Absolute Monocytes 0.6 K/uL (0.1-1.3); Absolute Neutrophil 10.5 K/uL (1.8-8.0); Basophils % 0.1 % (0-1.3); Hematocrit 40.2 % (39.6-49.0); Hemoglobin 13.1 g/dL (13.6-17.9); Lymphocytes % 12.3 % (15.3-44.8); MCH 29.9 pg (27.0-35.0); MCHC 32.5 g/dL (32.0-36.0); MCV 91.9 fL (80-100); Monocytes % 4.5 % (3.3-12.3); Neutrophils % 83.1 % (41.7-73.7); Platelets 266 thou/uL (152-406); RBC Red Blood Cell Count 4.38 M/uL (4.33-5.43); Red Cell Distribution Width 13.8 % (12.1-15.2)
[2024-07-02 09:02] LABS: Anion Gap 6.9 mEq/L (5.0-15.0); Phosphorus 1.9 mg/dL (2.5-4.9); Potassium 3.9 mEq/L (3.5-5.1)
--- NOTE | 2024-07-02 13:29 | P.PN ---
Date of Service: 07/02/24 Subjective Reports feeling well afebrile overnight No complaints WBC improving ROS 10 point ROS as noted above, otherwise negative Physical Exam General: Awake, Alert and Oriented x1, NAD Respiratory: Clear BBS, on RA, nonlabored breathing Cardiovascular: No edema, NSR, S1 S2 present Gastrointestinal: Normal bowel sounds, Soft and benign on palpation Musculoskeletal: No clubbing, No swelling Integumentary: No rashes, No breakdown Neurological: Normal speech Vitals Reviewed Problem list Acute respiratory distress secondary to COPD exacerbation SIRS criteria Lactic acidosis Leukocytosis Electrolyte Imbalance Atrial fibrillation CHF Dementia Plan Severe sepsis /2 to unknown source Acute respiratory distress secondary to COPD exacerbation Lactic acidosis Leukocytosis -reported on Home O2, Currently on room air -Steroids and DuoNebs -Blood culture-no growth -Urine culture with mixed rolf -Continue empiric IV antibiotics, stop Rocephin and started cefepime (06/30) -WBC improving, patient doing well Electrolyte Imbalance -Replace and monitor PRN Atrial fibrillation CHF Dementia -Continue home medication including eliquis -Continuous telemetry DVT ppx Eliquis DNR LOS 2 days
[2024-07-02 15:21] VITALS: BMI 26.2
[2024-07-02] MEDS: POTASSIUM 25 MEQ EFFERV TAB PO ONE (17:04)
[2024-07-02] MEDS: POTASS/SODIUM PHOSPHATE 1 PKT POWD.PACK PO SCH (17:05)
[2024-07-02] MEDS: TRAZODONE 50 MG TABLET PO PRN (20:43)
[2024-07-03 06:44] LABS: Absolute Lymphocytes (CBC) 0.8 K/uL (0.7-4.9); Absolute Monocytes 0.3 K/uL (0.1-1.3); Absolute Neutrophil 8.3 K/uL (1.8-8.0); Basophils % 0.1 % (0-1.3); Hematocrit 40.8 % (39.6-49.0); Hemoglobin 13.4 g/dL (13.6-17.9); Lymphocytes % 8.9 % (15.3-44.8); MCH 30.1 pg (27.0-35.0); MCHC 32.7 g/dL (32.0-36.0); MCV 91.9 fL (80-100); MPV 9.4 fL (7.6-11.3); Monocytes % 3.3 % (3.3-12.3); Neutrophils % 87.7 % (41.7-73.7); Platelets 240 thou/uL (152-406); RBC Red Blood Cell Count 4.44 M/uL (4.33-5.43); Red Cell Distribution Width 13.7 % (12.1-15.2)
[2024-07-03 07:00] LABS: Anion Gap 9.3 mEq/L (5.0-15.0); Magnesium 2.2 mg/dL (1.6-2.4); Phosphorus 2.6 mg/dL (2.5-4.9); Potassium 4.3 mEq/L (3.5-5.1)
--- NOTE | 2024-07-03 08:58 | P.DS ---
Admission Date: 06/29/24 Discharge Date: 07/03/24 Disposition: TRANSFER TO [facility] Discharge Condition: GOOD Reason for Admission: COPD exacerbation Brief History of Present Illness: Patient is 83 years of age with a history of COPD has been sick for the past day complaining of cough congestion worsening shortness of breath patient is an ex-smoker quit in 2022 son at the bedside recently wheelchair-bound O2 and nebulizers at home lives in a retirement and was congested Hospital Course: Problem list Acute respiratory distress secondary to COPD exacerbation SIRS criteria Lactic acidosis Leukocytosis Electrolyte Imbalance Atrial fibrillation CHF Dementia Patient was initially admitted to the hospital for suspected COPD exacerbation. His chest x-ray showed chronic appearing interstitial lung markings with no acute chest findings. On admission he had significant leukocytosis with a white blood cell count of 24.9. Blood cultures were obtained and have shown no growth, urine culture was also obtained which showed less than 10,000 CFU per mL mixed orlf. Patient has remained fever free throughout hospitalization and denies any specific complaints. He has been treated with IV cephalosporin antibiotics empirically and his white blood cell count has gradually reduced from 24.9 down to 9.4 today steadily decreasing today. He has remained stable and is clinically stable for discharge at this time. Will plan on empiric coverage with 7 additional days of cefdinir 300 milligrams twice daily to cover for possible pneumonia/UTI. Recommend follow-up with PCP/retirement doctor 1 week Continue other home medications as previously prescribed Med rec completed with addition of cefdinir 300 mg by mouth twice daily for 7 additional days Vital Signs/Physical Exam: Temp Pulse Resp BP Pulse Ox 97.3 F 76 16 130/64 96 07/03/24 04:00 07/03/24 04:00 07/03/24 04:00 07/03/24 04:00 07/03/24 04:00 General: Alert, In no apparent distress, Oriented x2 HEENT: Atraumatic, PERRLA Neck: Supple, JVD not distended Respiratory: Clear to auscultation bilaterally, Normal air movement Cardiovascular: Regular rate/rhythm, Normal S1 S2 Gastrointestinal: Normal bowel sounds, No tenderness Musculoskeletal: No tenderness Integumentary: No rashes Neurological: Normal speech, Normal affect Laboratory Data at Discharge: WBC 9.40 thou/uL (4.3-10.9) 07/03/24 06:02 Hgb 13.4 g/dL (13.6-17.9) L 07/03/24 06:02 Hct 40.8 % (39.6-49.0) 07/03/24 06:02 Plt Count 240 thou/uL (152-406) 07/03/24 06:02 PT 17.2 SECONDS (9.4-12.5) H 06/28/24 22:53 INR 1.56 06/28/24 22:53 APTT 20.1 SECONDS (24.3-36.9) L 06/28/24 22:53 Sodium 138 mEq/L (136-145) 07/03/24 06:02 Potassium 4.3 mEq/L (3.5-5.1) 07/03/24 06:02 BUN 24 mg/dL (7-18) H 07/03/24 06:02 Creatinine 0.76 mg/dL (0.70-1.30) 07/03/24 06:02 Glucose 187 mg/dL (74-106) H 07/03/24 06:02 Phosphorus 2.6 mg/dL (2.5-4.9) 07/03/24 06:02 Magnesium 2.2 mg/dL (1.6-2.4) 07/03/24 06:02 Total Bilirubin 0.4 mg/dL (0.2-1.0) 06/30/24 05:30 AST < 10 U/L (15-37) L 06/30/24 05:30 ALT < 14 U/L (16-61) L 06/30/24 05:30 Alkaline Phosphatase 53 U/L (45-117) 06/30/24 05:30 Home Medications: Acetaminophen [Pain Relief] 650 mg PO Q4HP PRN 06/29/24 Apixaban [Eliquis] 5 mg PO BID 06/29/24 Atorvastatin Calcium 40 mg PO BEDTIME 06/29/24 Cetirizine HCl [Allergy Relief] 10 mg PO DAILY 06/29/24 Cholecalciferol (Vitamin D3) [Vitamin D3] 5,000 unit PO DAILY 06/29/24 Esomeprazole Magnesium 40 mg PO DAILY 06/29/24 Fenofibrate [Tricor*] 145 mg PO DAILY 06/29/24 Ferrous Sulfate 325 mg PO DAILY 06/29/24 Finasteride 5 mg PO DAILY 06/29/24 Guaifenesin [Mucus Relief] 400 mg PO BID 06/29/24 Ipratropium/Albuterol Sulfate [Iprat-Albut 0.5-3(2.5) mg/3 ml] 3 ml IH Q6HP PRN 06/29/24 Levothyroxine [Synthroid*] 100 mcg PO [id number] 06/29/24 Loperamide [Imodium*] 2 mg PO Q6HP PRN 06/29/24 Multivitamin with Minerals [Multivitamins with Minerals] 1 each PO DAILY 06/29/24 Tamms-3/Dha/Epa/Fish Oil [Fish Oil 1,000 mg Softgel] 1 each PO BID 06/29/24 Sennosides [Senna Lax] 8.6 mg PO DAILYPRN PRN 06/29/24 Trazodone [Desyrel*] 50 mg PO BEDTIME PRN PRN 06/29/24 Cefdinir [Cefdinir*] 300 mg PO BID 7 Days #14 cap 07/03/24 New Medications: Cefdinir [Cefdinir*] 300 mg PO BID 7 Days #14 cap Physician Discharge Instructions: Patient was initially admitted to the hospital for suspected COPD exacerbation. His chest x-ray showed chronic appearing interstitial lung markings with no acute chest findings. On admission he had significant leukocytosis with a white blood cell count of 24.9. Blood cultures were obtained and have shown no growth, urine culture was also obtained which showed less than 10,000 CFU per mL mixed rolf. Patient has remained fever free throughout hospitalization and denies any specific complaints. He has been treated with IV cephalosporin antibiotics empirically and his white blood cell count has gradually reduced from 24.9 down to 9.4 today steadily decreasing today. He has remained stable and is clinically stable for discharge at this time. Will plan on empiric coverage with 7 additional days of cefdinir 300 milligrams twice daily to cover for possible pneumonia/UTI. Recommend follow-up with PCP/retirement doctor 1 week Continue other home medications as previously prescribed Med rec completed with addition of cefdinir 300 mg by mouth twice daily for 7 additional days Diet: Regular Activity: Wheel chair Followup: Gerardo Dubois MD [Primary Care Provider] - 1 Week Time spent managing pt's care (in minutes): 45
[2024-07-03 10:17] LABS: Blood Morphology Comment NOT SEEN (NOT SEEN); Platelet Estimate ADEQ; White Blood Cell Scan OK (OK)
[2024-07-05 01:03] VITALS: BP 117/74; TEMP 98.4
[2024-07-05 01:11] VITALS: O2SAT 97
== END 2024-07-03 12:00 | DRG 872 ==
LOC: ER 21:53 → ERHOLD 06-29 00:43 → 4TH 06-29 02:40
PROVIDERS: ADMIT Internal Medicine Sleep Medicine; ATTEND Hospitalist
PROC: 5A09357 Assistance with Respiratory Ventilation, Less than 24 Consecutive Hours, Continuous Positive Airway Pressure (ICD-10-PCS; principal; 2024-06-29)
DX: A41.9 Sepsis, unspecified organism (principal); J44.1 Chronic obstructive pulmonary disease with (acute) exacerbation; I69.351 Hemiplegia and hemiparesis following cerebral infarction affecting right dominant side; E87.21 Acute metabolic acidosis; R65.20 Severe sepsis without septic shock; D64.9 Anemia, unspecified; I48.91 Unspecified atrial fibrillation; Z79.01 Long term (current) use of anticoagulants; I25.10 Atherosclerotic heart disease of native coronary artery without angina pectoris; Z72.0 Tobacco use; I11.0 Hypertensive heart disease with heart failure; F03.90 Unspecified dementia, unspecified severity, without behavioral disturbance, psychotic disturbance, mood disturbance, and anxiety; E03.9 Hypothyroidism, unspecified; Z99.3 Dependence on wheelchair; Z99.81 Dependence on supplemental oxygen; Z85.038 Personal history of other malignant neoplasm of large intestine; Z85.528 Personal history of other malignant neoplasm of kidney; Z90.5 Acquired absence of kidney; E87.5 Hyperkalemia; R06.03 Acute respiratory distress; D72.829 Elevated white blood cell count, unspecified
CPT/HCPCS: 36415; 71045; 80048; 80053; 81001; 83605; 83735; 83880; 84100; 84132; 85025; 85610; 85730; 87040; 87086; 87088; 87804; 87811; 93005; 94640; 94660; 96365; 96375; 97161; 97530; 99285; J0692; J0696; J2919; J7040; J7050; J7605; J7644